=== PATIENT | female | born 1950 | race Caucasian/White ===

== ENCOUNTER 2022-03-28 19:55 | Inpatient (IN) | payer MEDICARE ==
[~2022-03-28] VITALS: Ht 158.8 cm; Wt 62.4 kg
[~2022-03-28 19:55] MED LIST: AMBIEN10 MG PO; ATENOLOL25 MG PO; ATIVAN0.5 MG PO; DURAGESIC 25MC25 MCG TOP; FLONASE ALLER15.8 ML; LIPITOR40 MG PO; NEXIUM40 MG PO; PERCOCET 10/321 EACH PO; REGLAN10 MG PO; SOMA350 MG PO; ZOFRAN4 MG PO
[2022-03-28 21:23] LABS: BASOPHIL 0.3 % (0-2); EOSINOPHIL 0 % (0-7); HCT 29.9 % (37.0-47.0); HGB 9.8 g/dl (12.5-16.0); LYMPHOCYTE 6.5 % (15-48); MCH 31.1 pg (25.0-31.0); MCHC 32.8 g/dL (32.0-36.0); MCV 94.9 fL (78.0-100.0); MONOCYTE 2.8 % (0-12); MPV 9.5 fL (6.0-9.5); NRBC 0; PLT 453 K/uL (150-400); RBC 3.15 M/uL (4.20-5.40); RDW 13.3 % (11.5-14.0); WBC 6.9 K/uL (4.0-10.5)
[2022-03-28 21:37] LABS: ALBUMIN 3.8 g/dL (3.4-5.0); BILIRUBIN - TOTAL 0.6 mg/dL (0.2-1.0); BUN/CREAT RATIO (CALC) 25.6 RATIO; CREATININE 0.9 mg/dL (0.51-0.95); GLOBULIN (CALCULATION) 3.3 g/dL; POTASSIUM 5.5 mmol/L (3.5-5.1); TOTAL PROTEIN 7.1 g/dL (6.4-8.2)
[2022-03-28 22:14] LABS: LACTIC ACID 1.7 mmol/L (0.4-1.9)
[2022-03-28] MEDS ORDERED: PREDNISONE20 MG PO (23:40)
[2022-03-28] MEDS ORDERED: SUCRALFATE1 GM PO (23:41)
[2022-03-28] MEDS ORDERED: ALBUTEROL0.63 MG/3 INH (23:41)
[2022-03-29 06:28] LABS: HCT 27.9 % (37.0-47.0); HGB 9.2 g/dl (12.5-16.0); MCH 31.1 pg (25.0-31.0); MCV 94.3 fL (78.0-100.0); MPV 9.7 fL (6.0-9.5); RBC 2.96 M/uL (4.20-5.40); RDW 13.2 % (11.5-14.0); WBC 4.5 K/uL (4.0-10.5)
[2022-03-29 06:39] LABS: INR 1.07 (0.9-1.2); PROTHROMBIN TIME 13.6 SECONDS (11.9-13.9)
[2022-03-29 06:41] LABS: D-DIMER 0.58 ug/mLFEU (0.00-0.41)
[2022-03-29 07:20] LABS: ALBUMIN 3.5 g/dL (3.4-5.0); BILIRUBIN - TOTAL 0.5 mg/dL (0.2-1.0); BUN/CREAT RATIO (CALC) 27.1 RATIO; C-REACTIVE PROTEIN 4.9 mg/dL (<=0.90); CREATININE 0.85 mg/dL (0.51-0.95); FT4 (FREE T4) 1.1 ng/dL (0.76-1.46); GLOBULIN (CALCULATION) 3.2 g/dL; MAGNESIUM 2.2 mg/dL (1.8-2.4); PHOSPHORUS 5.1 mg/dL (2.6-4.7); POTASSIUM 4.7 mmol/L (3.5-5.1); TOTAL PROTEIN 6.7 g/dL (6.4-8.2)
[2022-03-29 07:34] LABS: CKMB 2.1 ng/mL (0.0-3.6)
[2022-03-30 06:02] LABS: HGB 9.6 g/dl (12.5-16.0); MCH 31.3 pg (25.0-31.0); MCHC 33.1 g/dL (32.0-36.0); MCV 94.5 fL (78.0-100.0); MPV 9.3 fL (6.0-9.5); RBC 3.07 M/uL (4.20-5.40); RDW 13.3 % (11.5-14.0)
[2022-03-30 06:23] LABS: WBC 12.5 K/uL (4.0-10.5)
[2022-03-30 06:34] LABS: BUN/CREAT RATIO (CALC) 27.5 RATIO; CREATININE 1.02 mg/dL (0.51-0.95)
--- NOTE | 2022-03-31 01:39 | NUR ---
LAB VALVE + FOR BACTEREMIA, NEW ORDER FOR VANCOMYCIN 1000MG IV Q 24 HOURS PHARMACY TO DOSE.PATIENT AWARE.
[2022-03-31 06:39] LABS: BASOPHIL 0.6 % (0-2); EOSINOPHIL 1.1 % (0-7); HCT 28.7 % (37.0-47.0); HGB 9.4 g/dl (12.5-16.0); LYMPHOCYTE 18.2 % (15-48); MCH 31.1 pg (25.0-31.0); MCHC 32.8 g/dL (32.0-36.0); MONOCYTE 8.4 % (0-12); MPV 9.6 fL (6.0-9.5); NEUTROPHIL 71.4 % (41-80); NRBC 0; PLT 483 K/uL (150-400); RBC 3.02 M/uL (4.20-5.40); RDW 13.2 % (11.5-14.0)
[2022-03-31 07:06] LABS: WBC 10.5 K/uL (4.0-10.5)
[2022-03-31 07:17] LABS: ALBUMIN 3.3 g/dL (3.4-5.0); BILIRUBIN - TOTAL 0.3 mg/dL (0.2-1.0); BUN/CREAT RATIO (CALC) 31.6 RATIO; CREATININE 0.76 mg/dL (0.51-0.95); GLOBULIN (CALCULATION) 3.2 g/dL; POTASSIUM 4.1 mmol/L (3.5-5.1); TOTAL PROTEIN 6.5 g/dL (6.4-8.2)
[2022-04-01 07:30] LABS: BASOPHIL 1.3 % (0-2); EOSINOPHIL 2.1 % (0-7); HGB 9.6 g/dl (12.5-16.0); LYMPHOCYTE 39.7 % (15-48); MCH 30.7 pg (25.0-31.0); MCV 95.8 fL (78.0-100.0); MONOCYTE 11.6 % (0-12); MPV 9.4 fL (6.0-9.5); NEUTROPHIL 44.9 % (41-80); NRBC 0; PLT 504 K/uL (150-400); RBC 3.13 M/uL (4.20-5.40); RDW 13.3 % (11.5-14.0); WBC 7.7 K/uL (4.0-10.5)
[2022-04-01 08:13] LABS: CREATININE 0.73 mg/dL (0.51-0.95); MAGNESIUM 2.1 mg/dL (1.8-2.4); POTASSIUM 4.4 mmol/L (3.5-5.1)
[2022-04-01] MEDS ORDERED: LASIX40 MG PO (09:55)
--- NOTE | 2022-04-01 11:41 | NUR ---
Per nurse pt was needing to go home and needed home o2. I did email the o2 needs to Regine. She also needs home health; linda sarah said she would take her. Linda will call her once she gets home
== END 2022-04-01 13:00 | disposition home or self-care (01) | DRG 291 ==
LOC: FER 19:55 → FMS 22:29
PROVIDERS: Emergency Medicine; Nurse Practitioner; Nurse Practitioner Family; ADMIT Family Medicine
PROC: B24BZZZ Ultrasonography of Heart with Aorta (ICD-10-PCS; principal; 2022-03-29)
DX: I11.0 Hypertensive heart disease with heart failure (principal); I50.33 Acute on chronic diastolic (congestive) heart failure; J96.01 Acute respiratory failure with hypoxia; J44.1 Chronic obstructive pulmonary disease with (acute) exacerbation; R78.81 Bacteremia; D64.9 Anemia, unspecified; I27.20 Pulmonary hypertension, unspecified; F17.210 Nicotine dependence, cigarettes, uncomplicated; B96.89 Other specified bacterial agents as the cause of diseases classified elsewhere; M81.0 Age-related osteoporosis without current pathological fracture; Z88.0 Allergy status to penicillin; Z88.1 Allergy status to other antibiotic agents; Z88.5 Allergy status to narcotic agent; Z90.49 Acquired absence of other specified parts of digestive tract; Z98.890 Other specified postprocedural states; Z82.49 Family history of ischemic heart disease and other diseases of the circulatory system
CPT/HCPCS: 36415; 71045; 80048; 80053; 80061; 82553; 83036; 83605; 83615; 83735; 83880; 84100; 84145; 84439; 84443; 84484; 85025; 85379; 85610; 85730; 86140; 87040; 87077; 93005; 94010; 94640; 94664; 94667; 94668; 94760; 94762; 97162; 97165; J0692; J1650; J1940; J2405; J2930; J3370; J7050; J7512; Q0162